=== PATIENT | female | born 1940 | race Caucasian/White ===

== ENCOUNTER 2018-06-10 13:19 | Observation (INO) | payer MEDICARE, OTHER, SELFPAY ==
[2018-06-10] VITALS (8 sets, daily range): BP systolic 144–169; BP diastolic 73–91; PULSE 72–94; RESP 16–18; TEMP 36.6–36.9; O2SAT 97–100
--- NOTE | 2018-06-10 13:57 | PC.NURSE ---
Pt arrived via [facility] c/o generalized weakness and FTT. Increasingly weak, used to be able to ambulate around house and now unable to stand, pt has dementia and pleasantly confused and alert to person. Denies pain when asked. transported here for possible UTI r/o sepsis. Temp 98.7 in ambulance and rapid lactate of 2.8.
[2018-06-10] MEDS: SODIUM CHLORIDE 0.9% 1,000 ML 200 ML IV (14:00)
[2018-06-10 15:06] LABS: Add Manual Diff / Slide Review NO; Basophils Percent Auto 1.3 % (0-2); Eosinophils Percent Auto 1.2 % (2-4); Hematocrit 35.4 % (36-46); Hemoglobin 11.9 g/dL (12.0-16.0); Lymphocytes Percent Auto 16.6 % (25-40); Mean Corpuscular HGB Conc 33.7 % (30-36); Mean Corpuscular Hemoglobin 29.7 PG (26-34); Mean Corpuscular Volume 88.2 fL (80-100); Monocytes Percent Auto 5.8 % (3-14); Neutrophils Absolute Auto 5500 /uL (3000-5900); Neutrophils Percent Auto 75.1 % (50-75); Platelet Count 292 X10^3/uL (150-400); Red Blood Cell Count 4.01 X10^6/uL (4.0-5.2); White Blood Cell Count 7.4 X10^3/uL (4.5-11.0)
[2018-06-10 15:10] LABS: Lactate (Lactic Acid) 0.8 mmol/L (0.7-2.1)
[2018-06-10 15:11] LABS: Alanine Aminotransferase 23 IU/L (9-52); Albumin 3.7 g/dL (3.5-5.0); Albumin Globulin Ratio 1.3 (1.0-2.8); Alkaline Phosphatase 74 U/L (38-126); Aspartate Aminotransferase 21 IU/L (14-36); BUN Creatinine Ratio 22.9 (6-22); Bilirubin Total 0.4 mg/dL (0.2-1.3); Blood Urea Nitrogen 16 mg/dL (7-17); Calcium 9.3 mg/dL (8.4-10.2); Carbon Dioxide 31 mmol/L (22-32); Chloride 102 mmol/L (98-107); Estimated Glomerular Filt Rate > 60.0 mL/min (>60); Globulin 2.8 g/dL (1.7-4.1); Glucose 101 mg/dL (80-110); HEMOLYSIS < 15 (0-50); Sodium 137 mmol/L (137-145); Total Protein 6.5 g/dL (6.3-8.2)
--- NOTE | 2018-06-10 15:19 | DI.CT.S_ITS ---
PROCEDURE: CT HEAD/BRAIN WO CON INDICATIONS: ams TECHNIQUE: Noncontrast 4.5 mm thick angled axial sections acquired from the foramen magnum to the vertex, with coronal and sagittal reformats. For radiation dose reduction, the following was used: automated exposure control, adjustment of mA and/or kV according to patient size. COMPARISON: None. FINDINGS: Image quality: Excellent. CSF spaces: Basal cisterns are patent. No extra-axial fluid collections. The ventricles are symmetric in size and shape. Brain: No intracranial bleeds or masses. There is cerebral volume loss for age, with resultant ventricular and sulcal prominence. There are periventricular and deep white matter chronic small vessel ischemic changes. There is intracranial internal carotid artery atherosclerosis. Skull and face: Calvarium and visualized facial bones appear intact, without suspicious lesions. Sinuses: Visualized sinuses and mastoids are clear. IMPRESSION: No acute intracranial abnormality. Dictated by: Pro Palencia M.D. on 06/10/2018 at 16:21 Approved by: Pro Palencia M.D. on 06/10/2018 at 16:21
[2018-06-10 16:27] LABS: Bacteria Urine None Seen; WBC Urine None Seen (0-5/HPF)
[2018-06-10 16:30] LABS: Appearance Urine UA CLEAR; Bilirubin Urine UA NEGATIVE (NEGATIVE); Color Urine UA YELLOW; Glucose Urine UA NEGATIVE (Normal); Ketones Urine UA 1+ (NEGATIVE); Leukocyte Esterase Urine UA NEGATIVE (NEGATIVE); Nitrite Urine UA Negative (Negative); Occult Blood Urine UA 1+ (Negative); Protein Urine UA NEGATIVE (Negative); Specific Gravity Urine UA 1.015 (1.000-1.035); Urobilinogen Urine UA 0.2 E.U./dL (0.2)
[2018-06-10 16:52] LABS: RBC Urine 1-5/HPF (0-5/HPF)
--- NOTE | 2018-06-10 17:17 | DI.RAD.S_ITS ---
PROCEDURE: XR CHEST 1V INDICATIONS: ams TECHNIQUE: One view of the chest was acquired. COMPARISON: None. FINDINGS: Surgical changes and devices: None. Lungs and pleura: No pleural effusions or pneumothorax. Lungs are clear. Mediastinum: Mediastinal contours appear normal. Heart size is normal. Bones and chest wall: No suspicious bony lesions. Overlying soft tissues appear unremarkable. IMPRESSION: No acute process. Dictated by: Pro Palencia M.D. on 06/10/2018 at 17:33 Approved by: Pro Palencia M.D. on 06/10/2018 at 17:33
[2018-06-10 17:43] LABS: Troponin I < 0.012 ng/mL (0.01-0.034)
[2018-06-10 17:45] LABS: Procalcitonin < 0.05 ng/mL (<0.5)
[2018-06-10 17:48] LABS: Free T4, Direct Thyroxine 1.41 ng/dL (0.78-2.19)
--- NOTE | 2018-06-10 17:50 | ED.WEAKNESS ---
HPI - Weakness General Chief complaint: Weakness Stated complaint: Weakness History of Present Illness HPI Narrative: HPI 78-year-old female with a history of hypothyroidism and 5 years of gradual cognitive decline, decreased mobility, and decreased energy as well as increasing confusion presents for evaluation of 10 days of increasing weakness without further localizing symptoms, decreasing energy, and decreasing p.o. intake. Patient has been without recent falls, remains compliant with her levothyroxine, and takes no further medications. Patient is not yet hundred evaluation for her 5 years of cognitive decline. History obtained from: and PCP. M/S/F/SocHx notable for: Alzheimer's dementia; remainder reviewed with patient and in chart. ROS: Negative constitutional, eye, cardiovascular, pulmonary, GI, , MSK, skin, neurologic, psychiatric, endocrine unless noted in the HPI. Exam HR 94, BP 167/91, RR 18, T 98.2 ?F, SaO2 100 % on room air; at 1:24 PM. Gen: Pleasant, non-toxic appearing, resting comfortably. HEENT: Normocephalic, atraumatic Resp: Clear to auscultation bilaterally, normal work of breathing with no accessory muscle usage. Card: Regular rate and rhythm with no murmurs rubs or gallops. No JVD. No pedal edema bilaterally. GI: Nontender to palpation throughout all quadrants. Nondistended. : No CVA tenderness to percussion bilaterally. No suprapubic tenderness or palpable masses. MSK: No visible deformities, strength and tone within normal limits. Skin: Normal color with no visible lesions. Neuro: Gen AO x 3, no facial asymmetry, no gaze preference, no slurring of speech. CN II-III: pupils equal and reactive (->2mm bilaterally); III, IV, : EOMI, V1-V3: sensation to touch bilaterally intact; VII: no facial asymmetry (frown / smile); VIII: no nystagmus; X: phonation intact, uvula midline; XI: trapezius 5/5 bilaterally, XII: tongue midline. Cerebellar: no pronator drift, [id number] testing without dysmetria. 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 Gait: unable to assess. Psych: Mood and affect appropriate. Labs / Imaging (pertinent): WBC 7.4, Hb 11.9, Na 137, K 4.0, total bilirubin 0.4, AST 21, ALT 23, ALP 74, lactic acid 0.8. Troponin < 0.012, TSH 2.83, free T4 1.41, procalcitonin <0.05. UA - no bacteria, no WBCs, 1-5 RBCs, negative leukocyte esterase, negative nitrate. CT head: no acute intracranial abnormality. CXR: no acute cardiopulmonary disease process. EKG: SR at 97 BPM, IA 207 msec, no new ST segment changes, new LBBB, or T-wave changes that would suggest acute ischemia. MDM Previous chart, nursing note, and vitals reviewed. A: 78-year-old female with a history of Alzheimer's dementia and hypothyroidism and 5 years of gradual cognitive decline, decreased mobility, and decreased energy as well as increasing confusion presents for evaluation of 10 days of increasing weakness without further localizing symptoms, decreasing energy, and decreasing p.o. intake. DDx: CVA, ACS/UA, UTI, pneumonia, electrolyte abnormalities,anemia, hypothyroidism, hypothermia. Evaluation: * CVA: Examination without evidence of focal neuro deficit and history without evidence of resolved focal neuro deficit making stroke or TIA unlikely. CT head without evidence of abnormalities. * ACS/UA: Doubt ACS given a nonischemic EKG and negative troponin, history without clear evidence of symptoms consistent with unstable angina. * UTI: Urinalysis without evidence of infection. * Pneumonia: Doubt pneumonia given lack productive cough, fever, focal infiltrate on chest x-ray, or leukocytosis. * Heme/Lytes/Thyroid: CBC, BMP clinically within normal limits. TSH pending * Hypothermia: temperature within normal limits. * Polymyalgia rheumatica: ESR WNL, poor fit with overall symptoms, further evaluation deferred to PCP. ED Course: no acute clinically significant changes. Discussed patient's case with the patient's primary care physician, patient's had significant worsening, unable to ambulate, unable to perform ADLs, believes patient will need PT/OT and possible SNF placement. Pt's spouse amenable to admission and it planning on setting up home health assistance. Patient admitted for observation. Impression: Weakness. (please reference below for remainder of encounter information) Related Data Allergies Allergy/AdvReac Type Severity Reaction Status Date / Time No Known Drug Allergies Allergy Verified 06/10/18 13:24 Exam Initial Vital Signs Initial Vital Signs: Vital Signs Temperature 98.2 F 06/10/18 13:24 Pulse Rate 94 H 06/10/18 13:24 Respiratory Rate 18 06/10/18 13:24 Blood Pressure 167/91 H 06/10/18 13:24 Pulse Oximetry 100 06/10/18 13:24 Course Orders Ordered: ED Orders 06/10/18 14:10 Complete Blood Count AUTO DIFF Stat Comprehensive Metabolic Panel Stat Free T4 Free Thyroxine Stat Lactate (Lactic Acid) Stat Procalcitonin Stat Thyroid Stimulating Hormone Stat Troponin I Stat 06/10/18 15:10 Blood Culture Stat 06/10/18 15:19 CT head/brain wo con Stat EKG-12 Lead Stat 06/10/18 15:55 Urinalysis and Microscopic Stat 06/10/18 17:17 XR chest 1V Stat Sodium Chloride (Normal Saline 0.9%) 1,000 mls @ 200 mls/hr IV CONT ONE Stop: 06/10/18 18:59 Last Infusion: 06/10/18 17:04 Dose: 0 mls/hr Infusion: 06/10/18 16:30 Dose: 200 mls/hr Infusion: 06/10/18 15:45 Dose: 0 mls/hr Admin: 06/10/18 14:00 Dose: 200 mls/hr Vital Signs - 8 hr 06/10/18 13:24 06/10/18 14:36 06/10/18 16:33 Temperature 98.2 F 98 F Pulse Rate 94 H 86 72 Respiratory Rate 18 16 18 Blood Pressure 167/91 H Blood Pressure [Right Arm] 157/89 H 168/83 H Pulse Oximetry 100 100 100 MDM - Weakness Lab Data Result diagrams: 06/10/18 14:10 06/10/18 14:10 Lab Results 06/10/18 06/10/18 06/10/18 Range/Units 14:10 14:10 14:10 WBC 7.4 (4.5-11.0) X10^3/uL RBC 4.01 (4.0-5.2) X10^6/uL Hgb 11.9 L (12.0-16.0) g/dL Hct 35.4 L (36-46) % MCV 88.2 (80-100) fL MCH 29.7 (26-34) PG MCHC 33.7 (30-36) % RDW 13.0 (11.6-14.8) % Plt Count 292 (150-400) X10^3/uL Neut % (Auto) 75.1 H (50-75) % Lymph % (Auto) 16.6 L (25-40) % [place] % (Auto) 5.8 (3-14) % Eos % (Auto) 1.2 L (2-4) % Baso % (Auto) 1.3 (0-2) % Neut # (Auto) 5500 (0192-5075) /uL Sodium 137 (137-145) mmol/L Potassium 4.0 (3.4-5.1) mmol/L Chloride 102 (98-107) mmol/L Carbon Dioxide 31 (22-32) mmol/L BUN 16 (7-17) mg/dL Creatinine 0.70 (0.52-1.04) mg/dL Estimated GFR > 60.0 (>60) mL/min BUN/Creatinine Ratio 22.9 H (6-22) Glucose 101 (80-110) mg/dL Lactate 0.8 (0.7-2.1) mmol/L Calcium 9.3 (8.4-10.2) mg/dL Total Bilirubin 0.4 (0.2-1.3) mg/dL AST 21 (14-36) IU/L ALT 23 (9-52) IU/L Alkaline Phosphatase 74 (38-126) U/L Troponin I (0.01-0.034) ng/mL Total Protein 6.5 (6.3-8.2) g/dL Albumin 3.7 (3.5-5.0) g/dL Globulin 2.8 (1.7-4.1) g/dL Albumin/Globulin Ratio 1.3 (1.0-2.8) Procalcitonin (<0.5) ng/mL Free T4 (0.78-2.19) ng/dL Urine Color Urine Appearance Urine pH (4.5-8.0) Ur Specific [place] (1.000-1.035) Urine Protein (Negative) Urine Glucose (UA) (Normal) g/dL Urine Ketones (NEGATIVE) Urine Occult Blood (Negative) Urine Nitrate (Negative) Urine Bilirubin (NEGATIVE) Urine Urobilinogen (0.2) E.U./dL Ur Leukocyte Esterase (NEGATIVE) Urine RBC (0-5/HPF) Urine WBC (0-5/HPF) Urine Bacteria (None) Ur Culture Indicated? Micro UA Comment 06/10/18 06/10/18 06/10/18 Range/Units 14:10 14:10 14:10 WBC (4.5-11.0) X10^3/uL RBC (4.0-5.2) X10^6/uL Hgb (12.0-16.0) g/dL Hct (36-46) % MCV (80-100) fL MCH (26-34) PG MCHC (30-36) % RDW (11.6-14.8) % Plt Count (150-400) X10^3/uL Neut % (Auto) (50-75) % Lymph % (Auto) (25-40) % [place] % (Auto) (3-14) % Eos % (Auto) (2-4) % Baso % (Auto) (0-2) % Neut # (Auto) (6407-7109) /uL Sodium (137-145) mmol/L Potassium (3.4-5.1) mmol/L Chloride (98-107) mmol/L Carbon Dioxide (22-32) mmol/L BUN (7-17) mg/dL Creatinine (0.52-1.04) mg/dL Estimated GFR (>60) mL/min BUN/Creatinine Ratio (6-22) Glucose (80-110) mg/dL Lactate (0.7-2.1) mmol/L Calcium (8.4-10.2) mg/dL Total Bilirubin (0.2-1.3) mg/dL AST (14-36) IU/L ALT (9-52) IU/L Alkaline Phosphatase (38-126) U/L Troponin I < 0.012 (0.01-0.034) ng/mL Total Protein (6.3-8.2) g/dL Albumin (3.5-5.0) g/dL Globulin (1.7-4.1) g/dL Albumin/Globulin Ratio (1.0-2.8) Procalcitonin < 0.05 (<0.5) ng/mL Free T4 1.41 (0.78-2.19) ng/dL Urine Color Urine Appearance Urine pH (4.5-8.0) Ur Specific [place] (1.000-1.035) Urine Protein (Negative) Urine Glucose (UA) (Normal) g/dL Urine Ketones (NEGATIVE) Urine Occult Blood (Negative) Urine Nitrate (Negative) Urine Bilirubin (NEGATIVE) Urine Urobilinogen (0.2) E.U./dL Ur Leukocyte Esterase (NEGATIVE) Urine RBC (0-5/HPF) Urine WBC (0-5/HPF) Urine Bacteria (None) Ur Culture Indicated? Micro UA Comment 06/10/18 Range/Units 15:55 WBC (4.5-11.0) X10^3/uL RBC (4.0-5.2) X10^6/uL Hgb (12.0-16.0) g/dL Hct (36-46) % MCV (80-100) fL MCH (26-34) PG MCHC (30-36) % RDW (11.6-14.8) % Plt Count (150-400) X10^3/uL Neut % (Auto) (50-75) % Lymph % (Auto) (25-40) % [place] % (Auto) (3-14) % Eos % (Auto) (2-4) % Baso % (Auto) (0-2) % Neut # (Auto) (9449-6556) /uL Sodium (137-145) mmol/L Potassium (3.4-5.1) mmol/L Chloride (98-107) mmol/L Carbon Dioxide (22-32) mmol/L BUN (7-17) mg/dL Creatinine (0.52-1.04) mg/dL Estimated GFR (>60) mL/min BUN/Creatinine Ratio (6-22) Glucose (80-110) mg/dL Lactate (0.7-2.1) mmol/L Calcium (8.4-10.2) mg/dL Total Bilirubin (0.2-1.3) mg/dL AST (14-36) IU/L ALT (9-52) IU/L Alkaline Phosphatase (38-126) U/L Troponin I (0.01-0.034) ng/mL Total Protein (6.3-8.2) g/dL Albumin (3.5-5.0) g/dL Globulin (1.7-4.1) g/dL Albumin/Globulin Ratio (1.0-2.8) Procalcitonin (<0.5) ng/mL Free T4 (0.78-2.19) ng/dL Urine Color Yellow Urine Appearance Clear Urine pH 7.0 (4.5-8.0) Ur Specific [place] 1.015 (1.000-1.035) Urine Protein Negative (Negative) Urine Glucose (UA) Negative (Normal) g/dL Urine Ketones 1+ H (NEGATIVE) Urine Occult Blood 1+ H (Negative) Urine Nitrate Negative (Negative) Urine Bilirubin Negative (NEGATIVE) Urine Urobilinogen 0.2 (0.2) E.U./dL Ur Leukocyte Esterase Negative (NEGATIVE) Urine RBC 1-5/hpf (0-5/HPF) Urine WBC None seen (0-5/HPF) Urine Bacteria None seen (None) Ur Culture Indicated? Not Reportable Micro UA Comment Not Reportable
[2018-06-10 18:02] LABS: Thyroid Stimulating Hormone 2.83 uIU/mL (0.47-4.68)
--- NOTE | 2018-06-10 19:17 | P.HP_ITS ---
History of Present Illness Date Patient Seen: 06/10/18 Time Patient Seen: 18:30 Chief complaint: Weakness Narrative: This is an 78-year-old female with advanced Alzheimer's dementia presenting with progressive debilitation and failure to thrive, with inability for independent ambulation and activities of daily living. Operative physician account that was significant cognitive decline in the last 5 years accompanied by decreased mobility, energy, confusion and weakness resulting localizing symptoms. She was brought to ED by patient's for a conditional primary care physician for inability to continue ongoing cares she required requesting assistance with placement to alf facility. Initial exam and testing in ED was significant for elderly female who was pleasantly confused. Her vital signs were stable, hold given clinical exam was unremarkable. Otherwise no abnormal findings on the floor clinical labs and initial imaging studies conducted. Patient is getting admitted for observation by hospitalist team. PTOT to evaluate and treat, social work consult to assist with placement to skilled nurse facility Patient History Comment: Direct information regarding past surgical problems is unobtainable due to advanced dementia. Family & Social History Family History: Reviewed 06/10/18 by Herb Mosqueda MD Family history unavailable: Yes Social History: Family and social history is unobtainable due to advanced patient's dementia Safety & Behavioral: Apparently, patient's is unable to provide ongoing care for his due to her progressing dementia. Tobacco & Substance use: No reports of prior smoking, alcohol abuse or illicit drug use. Meds Home Medications Medication Instructions Recorded Confirmed Type levothyroxine 112 mcg PO DAILY 06/10/18 06/10/18 History Allergies Allergy/AdvReac Type Severity Reaction Status Date / Time No Known Drug Allergies Allergy Verified 06/10/18 13:24 Review of Systems Review of Systems unobtainable due to mental condition Exam Vital Signs (past 8 hours): - 06/10/18 13:24 06/10/18 14:36 06/10/18 16:33 Temperature 98.2 F 98 F Pulse Rate 94 H 86 72 Respiratory Rate 18 16 18 Blood Pressure 167/91 H Blood Pressure [Right Arm] 157/89 H 168/83 H Pulse Oximetry 100 100 100 06/10/18 18:00 06/10/18 18:35 Temperature 98.4 F Pulse Rate 84 89 Respiratory Rate 16 Blood Pressure 144/73 H Blood Pressure [Right Arm] 154/78 H Pulse Oximetry 97 100 Oxygen Delivery Method Room Air Narrative Exam Narrative: Constitutional: Pleasant, chronically confused, resting comfortably. HEENT: Normocephalic, atraumatic Neck: Supple, no lymphadenopathy, no bruits auscultation of the carotid arteries. Resp: Clear to auscultation bilaterally, no rales, crepitations or wheezing detected. Cardiovascular: Regular rate and rhythm with no murmurs rubs or gallops. GI: Nontender to palpation throughout all quadrants. Nondistended. : No CVA tenderness to percussion bilaterally. No suprapubic tenderness or palpable masses. MSK: No visible deformities, strength and tone within normal limits. Skin: Normal color with no visible lesions. Neuro: Patient appears to be grossly neurologically intact Objective Imaging Chest x-ray: Radiologist's impression: IMPRESSION: No acute process. Dictated by: Pro Palencia M.D. on 06/10/2018 at 17:33 Approved by: Pro Palencia M.D. on 06/10/2018 at 17:33 CT scan - head: Radiologist's impression: IMPRESSION: No acute intracranial abnormality. Dictated by: Pro Palencia M.D. on 06/10/2018 at 16:21 Approved by: Pro Palencia M.D. on 06/10/2018 at 16:21 Labs Result Diagrams: 06/10/18 14:10 06/10/18 14:10 Labs: Laboratory Results - last 24 hr 06/10/18 06/10/18 06/10/18 14:10 14:10 14:10 WBC 7.4 RBC 4.01 Hgb 11.9 L Hct 35.4 L MCV 88.2 MCH 29.7 MCHC 33.7 RDW 13.0 Plt Count 292 Neut % (Auto) 75.1 H Lymph % (Auto) 16.6 L [place] % (Auto) 5.8 Eos % (Auto) 1.2 L Baso % (Auto) 1.3 Neut # (Auto) 5500 Sodium 137 Potassium 4.0 Chloride 102 Carbon Dioxide 31 BUN 16 Creatinine 0.70 Estimated GFR > 60.0 BUN/Creatinine Ratio 22.9 H Glucose 101 Lactate 0.8 Calcium 9.3 Total Bilirubin 0.4 AST 21 ALT 23 Alkaline Phosphatase 74 Troponin I Total Protein 6.5 Albumin 3.7 Globulin 2.8 Albumin/Globulin Ratio 1.3 Procalcitonin TSH Free T4 Urine Color Urine Appearance Urine pH Ur Specific [place] Urine Protein Urine Glucose (UA) Urine Ketones Urine Occult Blood Urine Nitrate Urine Bilirubin Urine Urobilinogen Ur Leukocyte Esterase Urine RBC Urine WBC Urine Bacteria Ur Culture Indicated? Micro UA Comment 06/10/18 06/10/18 06/10/18 14:10 14:10 14:10 WBC RBC Hgb Hct MCV MCH MCHC RDW Plt Count Neut % (Auto) Lymph % (Auto) [place] % (Auto) Eos % (Auto) Baso % (Auto) Neut # (Auto) Sodium Potassium Chloride Carbon Dioxide BUN Creatinine Estimated GFR BUN/Creatinine Ratio Glucose Lactate Calcium Total Bilirubin AST ALT Alkaline Phosphatase Troponin I < 0.012 Total Protein Albumin Globulin Albumin/Globulin Ratio Procalcitonin < 0.05 TSH 2.83 Free T4 1.41 Urine Color Urine Appearance Urine pH Ur Specific [place] Urine Protein Urine Glucose (UA) Urine Ketones Urine Occult Blood Urine Nitrate Urine Bilirubin Urine Urobilinogen Ur Leukocyte Esterase Urine RBC Urine WBC Urine Bacteria Ur Culture Indicated? Micro UA Comment 06/10/18 15:55 WBC RBC Hgb Hct MCV MCH MCHC RDW Plt Count Neut % (Auto) Lymph % (Auto) [place] % (Auto) Eos % (Auto) Baso % (Auto) Neut # (Auto) Sodium Potassium Chloride Carbon Dioxide BUN Creatinine Estimated GFR BUN/Creatinine Ratio Glucose Lactate Calcium Total Bilirubin AST ALT Alkaline Phosphatase Troponin I Total Protein Albumin Globulin Albumin/Globulin Ratio Procalcitonin TSH Free T4 Urine Color Yellow Urine Appearance Clear Urine pH 7.0 Ur Specific [place] 1.015 Urine Protein Negative Urine Glucose (UA) Negative Urine Ketones 1+ H Urine Occult Blood 1+ H Urine Nitrate Negative Urine Bilirubin Negative Urine Urobilinogen 0.2 Ur Leukocyte Esterase Negative Urine RBC 1-5/hpf Urine WBC None seen Urine Bacteria None seen Ur Culture Indicated? Not Reportable Micro UA Comment Not Reportable Assessment & Plan Plan: Assessment/Plan Narrative: 1. Dementia, Alzheimer's type, advanced colon: Patient was brought to the ED by patient's who recommended primary care physician with request to assist with placement to skilled nurse facility . Patient with longstanding history of dementia without behavioral changes. There was significant cognitive and functional decline in the last 5 years. At this time patient essentially lost ability for independent ambulation and basic activities of daily living though was no falls reported. Social work consult to arrange sniff placement was requested and currently pending. 2. Hypothyroidism: Continue chronic replacement with Levoxyl 3. Deconditioning/debility: PTOT to evaluate and treat. 4. GI prophylaxis: Heart healthy diet. 5. DVT prophylaxis: Lovenox SC 6. Code status:Full code. Time Spent With Patient Time with patient: 25 - 35 minutes
--- NOTE | 2018-06-10 19:26 | PC.NURSE ---
Pt to acute care from ER. Transferred via stretcher/slider board to bed. Alert, Oriented to self. Denies pain. Unable to answer most admission questions/placed on High fall risk due to this. Bed alarm on. Attempted to orient to room/call light. Pt is visible from nurses station.
[2018-06-11] VITALS (10 sets, daily range): BP systolic 147–178; BP diastolic 75–101; PULSE 60–96; RESP 16; TEMP 36.6–37.2; O2SAT 93–98
--- NOTE | 2018-06-11 07:52 | PC.NURSE ---
Addendum entered by Catia Michael R.N. 06/11/18 15:53: Alert, oriented to self and . Flat affect, answers questions largely with 1-word answers. Was up to chair for a little while, then back to bed. 2-person Max assist for stand-pivot transfers. Seems like she will require supervision, assistance and cueing with meal when isn't here to help feed her. Resting back in bed at this time. Call light in reach, bed alarm on. sitting at bedside. Original Note: Shift summary: Resting quietly in bed with eyes closed. No s/sx distress or discomfort. Respirations regular and unlabored. Will let sleep and complete assessment when awake. Call light in reach, fall precautions in place. Bedrest until PT/OT eval.
--- NOTE | 2018-06-11 11:17 | CM.DANOTE ---
DCP: Case received, EMR reviewed and met with patient. Introduced self and role. DCP template completed with information currently available. Patient is an 78 year old female who admitted yesterday evening to the care of the hospitalist team. PCP: Dr. Tse. Payer: confirmed: Medicare/[employer]. Confirmed this with spouse. Patient carries a diagnosis of dementia. Came to hospital with symptoms of increased weakness. is the primary caregiver, and stated that as her dementia progresses, she has become weaker. He stated that he has noted increased weakness more-so in the last 10 days. stated that she is not an elopement risk anymore as her disease has advanced, but it is getting harder for him to transfer her. Gave Medicare choice list, and [facility] to look at Assisted Living Facilities. Is aware that he would have to pay privately. Called and spoke to Olivia, and stated that admissions would be there tomorrow. also called, and may look at facility tomorrow. Also called [facility], spoke to Aiyana, she is head of [facility], and gave rates of about 140.00 a day. may call her. He is also looking into home caregivers as well. P: Patient remains under observation status. may take her home and get home caregivers, he will weigh out the cost on this. Is aware that is private pay. Has no other family in immediate area, they live on [address]. DCP to continue to plan and support. Muna Wheeler, RN/Reeling Operator
--- NOTE | 2018-06-11 11:30 | OT.IP.EVAL ---
Past Medical History (Last Updated 06/10/18 @ 19:25 by Michelle Mcclelland RN) Hypothyroid (Acute) Occupational Therapy Inpatient Evaluation/Re-Eval M1 PT/OT-IP Prior Functional Status Start: 06/11/18 13:22 Freq: NEEDED Status: Active Protocol: Document 06/11/18 13:22 PJM (Rec: 06/11/18 13:47 PJM [email or web address]) Medical Review Prior Functional Status Medical History Reviewed Yes Communication WFL, hesitant speech Mobility and Gait Pt was ambulating holding 's arm until 10 days ago, then began to require 2 handhold assist with leading her. She has been unable to ambulate last 1-2 days prior to admit. reports pt had 1 fall at home about 10 days ago when getting up to bathroom during the night. He had to call EMT for assist in getting her up. Activities of Daily Living and IADL's has been assisting pt with grooming, dressing, bathing, and toileting. She recently became incontinent of bowel and bladder. does all IADLs . They live on [facility]. Social History Household Members spouse Living Arrangements House Number of Floors (Floors) Two Floors Number of Stairs To Enter/Railing? 1 stair to enter main level of home. Pt does not use lower level. Home Environment Standard Height Toilet Walk in Shower Home Equipment Front Wheel Walker Straight Cane Grab Bars Near Toilet Employment Status Retired Additional Social History Comment Pt has been standing to shower with assist from . Pt has toilet safety frame. M2 OT-IP Current Condition Start: 06/11/18 13:22 Freq: Status: Active Protocol: Document 06/11/18 13:22 PJM (Rec: 06/11/18 13:47 PJM [email or web address]) Occupational Therapy Current Condition Current Condition Evaluation Date 06/11/18 Treatment Diagnosis decreased functional cognition , self care, mobility due to dementia Diagnosis Onset Date 06/10/18 Post Operative Precautions Other Precautions confusion, fall risk, bed/ chair alarm M3 OT- IP Subjective and Pain Start: 06/11/18 13:22 Freq: Status: Active Protocol: Document 06/11/18 13:22 PJM (Rec: 06/11/18 13:47 PJM [email or web address]) OT- Subjective Occupational Therapy Visit Type Type Initial Evaluation Visit Start Time 10:45 Visit Stop Time 11:30 Total Visit Minutes 45 Notes here to provide information re: pt's prior level of function. Occupational Therapy Visit Comments Patient Comments pt does not initiate conversation Patient/Caregiver Goals none verbalized this session due to confusion OT Pain Assessment Pain When Pain Assessed After Treatment Pain Present Pain Present Denied Pain M4 OT- IP ADL's Start: 06/11/18 13:22 Freq: Status: Active Protocol: Document 06/11/18 13:22 PJM (Rec: 06/11/18 13:47 PJ [email or web address]) OT AED-Cipw-Kqtohza General Evaluation Self-Feeding Ability Standby Assistance Comments OT Self-Feeding Comments Needs meal tray set up and supervision due to confusion OT ADL-Grooming General Evaluation Grooming Ability Moderate Assistance Areas Needing Assistance Retrieving/Set-up of Grooming Items Combing/Brushing Hair Face Washing Comments OT Grooming Comments seated in chair OT ADL-Oral Care General Eval Oral Care Ability Minimal Assistance Areas of Assistance Retrieving/Set-Up of Items Devices Oral Care Devices Toothbrush Comments Oral Care Comments seated in chair OT ADL-Dressing General Eval Upper Body Dressing Ability Moderate Assistance Lower Body Dressing Ability Maximum Assistance Comments OT Dressing Comments states pt could tie shoes at home. He assisted with upper/lower body dressing prior to admit. OT ADL-Toileting General Evaluation Toileting Ability Total Assistance Comments OT Toileting Comments Pt has been incontinent of bowel and bladder recently per ; wears Attends. OT ADL-Bathing Bathing Type Bathing Type Sponge Bath General Evaluation Bathing Ability Maximal Assistance M5 OT- IP IADL's Start: 06/11/18 13:22 Freq: Status: Active Protocol: Document 06/11/18 13:22 PJM (Rec: 06/11/18 13:47 PJ [email or web address]) OT-Instrumental Activities of Daily Living Deficits IADL Deficits Identified Deficits Home Safety Awareness Awareness of Need for Assistance at Home Decreased Awareness Ability to Problem Solve Emergency Unable to Problem Solve Situations Medication Management Medication Management Caregiver Administers Money Management Money Management Caregiver Provides Assistance Meal Preparation Meal Preparation Caregiver Provides Assist Beef Trimmer Beef Trimmer Caregiver Provides Assist Driving Driving Comments pt no longer drives M6 OT- IP Functional Cognition Start: 06/11/18 13:22 Freq: Status: Active Protocol: Document 06/11/18 13:22 PJM (Rec: 06/11/18 13:47 [facility] [id number]) Cognitive Factors Limiting Selfcare Function Cognitive Ability Level of Alertness Alert Patient Orientation Name Attention Span Ability Capable of Focused Attention Ability to Follow Commands Able to Follow One Step Commands Memory Description Immediate Impaired Short Term Impaired Problem Solving Ability Unable to Identify Errors Cognitive Comments Cognitive Assessment Comments Pt has significantly slowed speed of processing. She is oriented to self only. She recognizes and names her . She does follow one step commands after processing delay. OT- Vision and Hearing OT- Hearing Assessment OT- Hearing Assessment WFL OT- Vision Assessment Visual Acuity WFL Vision Assessment Comments Pt reads her journals per . M7 OT- IP Mobility and Balance Start: 06/11/18 13:22 Freq: Status: Active Protocol: Document 06/11/18 13:22 PJ (Rec: 06/11/18 13:47 [facility] [id number]) OT- Bed Mobility Assessment Rolling Type of Rolling Roll to Left Level of Assistance Maximum Assistance Supine to Sit Supine to Sit Assist Maximum Assistance 1 Person Assistance Head of Bed Elevated Scooting Scooting to Edge of Bed Maximum Assistance 1 Person Assistance Bedrails OT-Transfer Assessment Sit to and From Stand Sit to and from Stand Maximum Assistance 2 Person Assistance Transfers Transfer Ability Maximum Assistance 2 Person Assistance Technique Transfer Destination Chair Transfer Technique Stand Pivot Devices Transfer Assistive Devices Gait Belt Comments Mobility Comments Max assist of 1 person with second person assist for safety. Pt leans backwards and has difficulty with weight shifting for stepping. She appears fearful of falling and apraxic with motor commands. OT- Gait Assessment Comments Gait Ability Comments pt non ambulatory at present OT- Balance Assessment Sitting Balance and Reactions Static Sitting Balance Ability Fair Dynamic Sitting Balance Ability Poor Standing Balance and Reactions Static Standing Balance Ability Poor Dynamic Standing Balance Ability Poor M8 OT- IP Objective Assessments Start: 06/11/18 13:22 Freq: Status: Active Protocol: Document 06/11/18 13:22 PJ (Rec: 06/11/18 13:47 [facility] [id number]) OT Gross Range of Motion Upper Extremity Range of Motion Assessment Right Impaired ROM Impairments Pt has RUE lag compared to L during BUE AROM. Per , pt had R wrist fx's in 2011 and 2012. OT Strength Upper Extremity Strength Assessment Right Impaired Shoulder RUE: 3+/5 LUE: 4-/5 Elbow RUE: 3+/5 LUE: 4-/5 Hand RUE: 4-/5 LUE: 4/5 Hand Supervisor [employer] Strength Hand Dominance Right Comments Strength Comments RUE slightly weaker than LUE throughout OT- Coordination Assessment Comments Coordination Comments B hand coordination impaired by confusion and decreased moot planning OT-Muscle Tone Assessment Muscle Tone WNL Yes OT Sensation Assessment Comments Summary Comments Pt appears to detect light touch in BUE; difficult to formally assess due to confusion Edema Edema Absent Edema Comments in BUE's M9 OT- IP Assessment and Plan Start: 06/11/18 13:22 Freq: Status: Active Protocol: Document 06/11/18 13:22 PJM (Rec: 06/11/18 13:47 PJM [email or web address]) OT Summary Assessment and Plan Potential Rehabilitation Potential Fair Analytic Complexity at Evaluation Low Summary OT Impairments Strength Functional Cognition Functional Mobility Grooming Dressing Toileting Bathing Toilet Transfers Shower Transfers Assessment Summary Low complexity OT assessment completed. Pt has significant performance deficits in functional cognition with recent significant decrease in all functional mobility, continence and self care, especially in last 10 days. Her elderly is no longer able to care for her at home. Per case briefer, d/c plan is home with paid caregiver vs Adult Family Home . is considering options at present. Pt may benefit from home health OT services at d/c to maximize independence in new setting and/or provide caregiver training. Goals Self-Feeding Goal Standby Assistance Grooming Goal Standby Assistance Dressing Goal Minimal Assistance Bathing Goal Moderate Assistance Toilet Transfer Goal Moderate Assistance Bedside Commode OT-Other Goals Bathing goal is for seated upper body sponge bath. Days to Meet Goals 5 Frequency of Treatment Frequency Of Treatment Once a Day Treatment Plan OT Treatment Plan ADL Training Functional Mobility Patient/Family Education Discharge Planning Discharge Recommendations OT Discharge Recommendations Home with 16/05 Assist Home Health Other Discharge Recommendations vs Adult Family home Home Equipment Needs bedside commode, shower seat with back, hand held shower hose
--- NOTE | 2018-06-11 11:30 | PT.IIE ---
Medical History (Last Updated 06/10/18 @ 19:25 by Michelle Mcclelland RN) Hypothyroid (Acute) Physical Therapy Inpatient Evaluation/Re-Eval M1 PT/OT-IP Prior Functional Status Start: 06/11/18 13:22 Freq: NEEDED Status: Active Protocol: Document 06/11/18 13:22 PJM (Rec: 06/11/18 13:47 PJM [email or web address]) Medical Review Prior Functional Status Medical History Reviewed Yes Communication WFL, hesitant speech Mobility and Gait Pt was ambulating holding 's arm until 10 days ago, then began to require 2 handhold assist with leading her. She has been unable to ambulate last 1-2 days prior to admit. reports pt had 1 fall at home about 10 days ago when getting up to bathroom during the night. He had to call EMT for assist in getting her up. Activities of Daily Living and IADL's has been assisting pt with grooming, dressing, bathing, and toileting. She recently became incontinent of bowel and bladder. does all IADLs . They live on [facility]. Social History Household Members spouse Living Arrangements House Number of Floors (Floors) Two Floors Number of Stairs To Enter/Railing? 1 stair to enter main level of home. Pt does not use lower level. Home Environment Standard Height Toilet Walk in Shower Home Equipment Front Wheel Walker Straight Cane Grab Bars Near Toilet Employment Status Retired Additional Social History Comment Pt has been standing to shower with assist from . Pt has toilet safety frame. M2 PT-IP Current Condition Start: 06/11/18 14:55 Freq: Status: Active Protocol: Document 06/11/18 11:30 [facility] (Rec: 06/11/18 15:10 [facility] [id number]) Physical Therapy Current Condition Current Condition Evaluation Date 06/11/18 Treatment Diagnosis weakness, impaired mobility Onset Date 06/10/18 Precautions Other Precautions confusion, fall risk, bed/ chair alarm M3 PT-IP Subjective Start: 06/11/18 14:55 Freq: Status: Active Protocol: Document 06/11/18 11:30 [facility] (Rec: 06/11/18 15:10 [facility] [id number]) Subjective Physical Therapy Visit Type Type Initial Evaluation Visit Start Time 11:00 Visit Stop Time 11:30 Total Visit Minutes 30 Number of HAT FINISHER Visits 0 Physical Therapy Visit Comments Patient Comments pt willing to participate in evaluation. M4 PT-IP Mobility and Gait Start: 06/11/18 14:55 Freq: Status: Active Protocol: Document 06/11/18 11:30 [facility] (Rec: 06/11/18 15:10 [facility] [id number]) PT-Bed Mobility Assessment Supine to Sit Supine to Sit Maximum Assistance 1 Person Assistance Head of Bed Elevated Scooting Scooting to Edge of Bed Maximum Assistance PT-Transfer Assessment Sit to and From Stand Sit to and from Stand Maximum Assistance 2 Person Assistance Equipment Transfer Assistive Device Gait Belt Transfers Transfer Destination Chair Transfer Technique Stand Pivot Transfer Ability Level of Assist Maximum Assistance 2 Person Assistance Comments Mobility Comments PT in front of pt with pt's hands on PT's B forearms. Gait Assessment Comments Gait Comments unable to perform PT-Balance Assessment Sitting Balance and Reactions Static Sitting Balance Ability Fair Dynamic Sitting Balance Ability Poor Standing Balance and Reactions Static Standing Balance Ability Poor Dynamic Standing Balance Ability Poor M5 PT-IP Objective Assessments Start: 06/11/18 14:55 Freq: Status: Active Protocol: Document 06/11/18 11:30 [facility] (Rec: 06/11/18 15:10 [facility] [id number]) Orientation Orientation/Cognition Level of Alertness Confusional State Gross Range of Motion Lower Extremity ROM Impairments limited B knee flexion and extension Strength Lower Extremity Strength Assessment Bilaterally Impaired Hip flexion 2+/5 bilaterally Knee flexion 3+/5 B, extensoin 3/5 on the L and 3+/5 on R Ankle DF 2/5 on the R, 3/5 L Coordination Assessment Gross Coordination Gross Coordination Impaired Muscle Tone Muscle Tone WNL No Comments Muscle Tone Comments heel cord tighness R>L M6 PT-IP Treatment Start: 06/11/18 14:55 Freq: Status: Active Protocol: Document 06/11/18 11:30 [facility] (Rec: 06/11/18 15:10 [facility] [id number]) Physical Therapy Treatment Education Education Provided Safety M7 PT-IP Assessment and Plan Start: 06/11/18 14:55 Freq: Status: Active Protocol: Document 06/11/18 11:30 [facility] (Rec: 06/11/18 15:10 [facility] [id number]) PT Summary Assessment and Plan Potential Rehabilitation Potential Fair Status of Condition at Evaluation Evolving Summary Impairments ROM Strength Balance Coordination Cognition Bed Mobility Transfers Gait Activity Tolerance Assessment Summary Pt presents with progressive worsening of mobility, requiring max assist for all mobility, 2 assist for transfers. Pt's has been assisting, but the burden of care now is too high for the pt's spouse to be able to safely manage at home. Pt is unable to ambulate at the time of this session, and is at high risk for falls. Pt would likely benefit from 24/7 assistance given her amount of needs required for daily function. Pt may require long- term care if condition continues to decline. Goals Bed Mobility Goal Moderate Assistance Transfer Goal Moderate Assistance Gait Goal Moderate Assistance Gait Distance 10 Days to Meet Goals 3 Frequency of Treatment Frequency Of Treatment Once a Day Treatment Plan Physical Therapy Treatment Plan Bed Mobility Training Transfer Training Gait Training Therapeutic Exercise Balance Retraining Discharge Planning Neuromuscular Re-ed Coordination Retraining Other Recommendations and Next Treatment transfers, prog. toward Focus functional gait (recommend 2 assist) Recommendations To Nursing Amount of Assist Needed 2 Person Assist Discharge Recommendations PT Discharge Recommendations Home with 24/7 Assist Home Health SNF Rehab Other Discharge Recommendations SNF vs home with 24/7 and , possibly long-term care
--- NOTE | 2018-06-11 13:11 | PM.PN.1 ---
Subjective Date Patient Seen: 06/11/18 Time Patient Seen: 09:10 Interval history: This is an 78-year-old female with advanced Alzheimer's dementia presenting with progressive debilitation and failure to thrive, with inability for independent ambulation and activities of daily living. No events since admission, currently remains pleasantly confused and appears to be comfortable. Exam Vital Signs (past 8 hours): - 06/11/18 08:30 Temperature 98.4 F Pulse Rate 89 Respiratory Rate 16 Blood Pressure 152/95 H Pulse Oximetry 93 Oxygen Delivery Method Room Air Narrative Exam Narrative: Constitutional: Pleasant, chronically confused, resting comfortably. HEENT: Normocephalic, atraumatic Neck: Supple, no lymphadenopathy, no bruits auscultation of the carotid arteries. Resp: Clear to auscultation bilaterally, no rales, crepitations or wheezing detected. Cardiovascular: Regular rate and rhythm with no murmurs rubs or gallops. GI: Nontender to palpation throughout all quadrants. Nondistended. : No CVA tenderness to percussion bilaterally. No suprapubic tenderness or palpable masses. MSK: No visible deformities, strength and tone within normal limits. Skin: Normal color with no visible lesions. Neuro: Patient appears to be grossly neurologically intact Objective Imaging Chest x-ray: Radiologist's impression: Surgical changes and devices: None. Lungs and pleura: No pleural effusions or pneumothorax. Lungs are clear. Mediastinum: Mediastinal contours appear normal. Heart size is normal. Bones and chest wall: No suspicious bony lesions. Overlying soft tissues appear unremarkable. IMPRESSION: No acute process. Dictated by: Pro Palencia M.D. on 06/10/2018 at 17:33 Approved by: Pro Palencia M.D. on 06/10/2018 at 17:33 CT scan - head: Radiologist's impression: FINDINGS: Image quality: Excellent. CSF spaces: Basal cisterns are patent. No extra-axial fluid collections. The ventricles are symmetric in size and shape. Brain: No intracranial bleeds or masses. There is cerebral volume loss for age, with resultant ventricular and sulcal prominence. There are periventricular and deep white matter chronic small vessel ischemic changes. There is intracranial internal carotid artery atherosclerosis. Skull and face: Calvarium and visualized facial bones appear intact, without suspicious lesions. Sinuses: Visualized sinuses and mastoids are clear. IMPRESSION: No acute intracranial abnormality. Dictated by: Pro Palencia M.D. on 06/10/2018 at 16:21 Approved by: Pro Palencia M.D. on 06/10/2018 at 16:21 Labs Result Diagrams: 06/10/18 14:10 06/10/18 14:10 Labs: Laboratory Results - last 24 hr 06/10/18 06/10/18 06/10/18 14:10 14:10 14:10 WBC 7.4 RBC 4.01 Hgb 11.9 L Hct 35.4 L MCV 88.2 MCH 29.7 MCHC 33.7 RDW 13.0 Plt Count 292 Neut % (Auto) 75.1 H Lymph % (Auto) 16.6 L [place] % (Auto) 5.8 Eos % (Auto) 1.2 L Baso % (Auto) 1.3 Neut # (Auto) 5500 Sodium 137 Potassium 4.0 Chloride 102 Carbon Dioxide 31 BUN 16 Creatinine 0.70 Estimated GFR > 60.0 BUN/Creatinine Ratio 22.9 H Glucose 101 Lactate 0.8 Calcium 9.3 Total Bilirubin 0.4 AST 21 ALT 23 Alkaline Phosphatase 74 Troponin I Total Protein 6.5 Albumin 3.7 Globulin 2.8 Albumin/Globulin Ratio 1.3 Procalcitonin TSH Free T4 Urine Color Urine Appearance Urine pH Ur Specific [place] Urine Protein Urine Glucose (UA) Urine Ketones Urine Occult Blood Urine Nitrate Urine Bilirubin Urine Urobilinogen Ur Leukocyte Esterase Urine RBC Urine WBC Urine Bacteria Ur Culture Indicated? Micro UA Comment 06/10/18 06/10/18 06/10/18 14:10 14:10 14:10 WBC RBC Hgb Hct MCV MCH MCHC RDW Plt Count Neut % (Auto) Lymph % (Auto) [place] % (Auto) Eos % (Auto) Baso % (Auto) Neut # (Auto) Sodium Potassium Chloride Carbon Dioxide BUN Creatinine Estimated GFR BUN/Creatinine Ratio Glucose Lactate Calcium Total Bilirubin AST ALT Alkaline Phosphatase Troponin I < 0.012 Total Protein Albumin Globulin Albumin/Globulin Ratio Procalcitonin < 0.05 TSH 2.83 Free T4 1.41 Urine Color Urine Appearance Urine pH Ur Specific [place] Urine Protein Urine Glucose (UA) Urine Ketones Urine Occult Blood Urine Nitrate Urine Bilirubin Urine Urobilinogen Ur Leukocyte Esterase Urine RBC Urine WBC Urine Bacteria Ur Culture Indicated? Micro UA Comment 06/10/18 15:55 WBC RBC Hgb Hct MCV MCH MCHC RDW Plt Count Neut % (Auto) Lymph % (Auto) [place] % (Auto) Eos % (Auto) Baso % (Auto) Neut # (Auto) Sodium Potassium Chloride Carbon Dioxide BUN Creatinine Estimated GFR BUN/Creatinine Ratio Glucose Lactate Calcium Total Bilirubin AST ALT Alkaline Phosphatase Troponin I Total Protein Albumin Globulin Albumin/Globulin Ratio Procalcitonin TSH Free T4 Urine Color Yellow Urine Appearance Clear Urine pH 7.0 Ur Specific [place] 1.015 Urine Protein Negative Urine Glucose (UA) Negative Urine Ketones 1+ H Urine Occult Blood 1+ H Urine Nitrate Negative Urine Bilirubin Negative Urine Urobilinogen 0.2 Ur Leukocyte Esterase Negative Urine RBC 1-5/hpf Urine WBC None seen Urine Bacteria None seen Ur Culture Indicated? Not Reportable Micro UA Comment Not Reportable Assessment & Plan Plan: Assessment/Plan Narrative: 1. Dementia, Alzheimer's type, advanced : Patient was brought to the ED by patient's per recommendation of her primary care physician with request to assist with placement to skilled nurse facility . Patient with longstanding history of dementia without behavioral changes. There was significant cognitive and functional decline in the last 5 years. At this time patient essentially lost ability for independent ambulation and basic activities of daily living though was no falls reported. acknowledged inability to continue caring for his . Social work consult was called to arrange SNF placement and currently pending. 2. Hypothyroidism: Continue chronic replacement with Levoxyl 3. Deconditioning/debility: PT/ OT to evaluate and treat. 4. GI prophylaxis: Heart healthy diet. 5. DVT prophylaxis: Lovenox SC 6. Code status:per discussion with patient's patient was made DNR/ DNI. Time Spent With Patient Time with patient: 25 - 35 minutes
[2018-06-11] MEDS: SODIUM CHLORIDE 0.9% FLUSH 10 ML IV (20:32)
[2018-06-12] VITALS (10 sets, daily range): BP systolic 145–180; BP diastolic 85–101; PULSE 69–98; RESP 16–18; TEMP 36.6–37.1; O2SAT 93–99
[2018-06-12 05:55] LABS: Add Manual Diff / Slide Review NO; Basophils Percent Auto 0.7 % (0-2); Eosinophils Percent Auto 1.9 % (2-4); Hematocrit 37.5 % (36-46); Hemoglobin 12.6 g/dL (12.0-16.0); Lymphocytes Percent Auto 14.6 % (25-40); Mean Corpuscular HGB Conc 33.6 % (30-36); Mean Corpuscular Hemoglobin 29.5 PG (26-34); Mean Corpuscular Volume 87.8 fL (80-100); Neutrophils Absolute Auto 7000 /uL (3000-5900); Neutrophils Percent Auto 73.8 % (50-75); Platelet Count 271 X10^3/uL (150-400); Red Blood Cell Count 4.27 X10^6/uL (4.0-5.2); Red Cell Distribution Width 12.8 % (11.6-14.8); White Blood Cell Count 9.5 X10^3/uL (4.5-11.0)
[2018-06-12 06:00] LABS: BUN Creatinine Ratio 21.7 (6-22); Blood Urea Nitrogen 13 mg/dL (7-17); Calcium 9.3 mg/dL (8.4-10.2); Carbon Dioxide 25 mmol/L (22-32); Chloride 103 mmol/L (98-107); Estimated Glomerular Filt Rate > 60.0 mL/min (>60); Glucose 105 mg/dL (80-110); HEMOLYSIS < 15 (0-50); Magnesium 1.7 mg/dL (1.6-2.3); Potassium 3.7 mmol/L (3.4-5.1); Sodium 139 mmol/L (137-145)
--- NOTE | 2018-06-12 08:03 | PC.NURSE ---
Addendum entered by Catia Michael R.N. 06/12/18 15:56: Spoke to MD in-person re: min PO intake as described below. No new orders at this time. Original Note: Addendum entered by Catia Michael R.N. 06/12/18 15:44: Patient refused lunch despite our best efforts to encourage and assist with meal. Very minimal PO intake today, about 200 ml fluids. Incontinent of urine, so voids unmeasured. Note left for Dr Harrington regarding the same, asked if he thinks patient might need some IV fluids. Melany shift aware to look for orders should he put them in. Original Note: Addendum entered by Catia Michael R.N. 06/12/18 09:44: Discharge disposition: Patient's just arrived and reports he thinks he's found a place for his on [facility]. He's going to go out there today to check it out, but would like to speak to CM before he goes. Will relay this info to Carin. Original Note: Addendum entered by Catia Michael R.N. 06/12/18 09:43: DVT prophylaxis: In prog note from yesterday mentioned that patient was on Lovenox for DVT prophylaxis, but it had not been ordered. This senior technical writer let MD know, see new order. Original Note: Shift summary: Resting quietly in bed with eyes closed. Awakened easily to voice & touch. Pleasantly confused, oriented to self only. Affect is quite flat, one-word answers to questions for the most part. Denies pain and appears comfortable. FLACC score 0. Lungs CTA, SpO2 on RA 97%. HRR. Plan for Q2H reposition and brief changes PRN. PT/OT involved. Case management working together w/ and MD re: discharge disposition and arrangements. Reoriented to call light, light in reach. Bed alarm on.
[2018-06-12] MEDS: SODIUM CHLORIDE 0.9% FLUSH 10 ML IV ×2 (08:49→20:28)
--- NOTE | 2018-06-12 11:09 | CM.DPC ---
DCP: continued: case received, EMR reviewed. Discussed case in morning Interdisc team meeting and then met with pt and her , Jesu. UR RN confirms admission status remains OBS. Jesu reports that he found out yesterday about a small AF: [facility]: Tahmina and Gianluca Jordan [phone] Nurse green building architect: Alcira Johnson: tel: [phone] (no fax) He has good recommendations of this facility from friends and will look at it later today. Jesu says he is very hopeful that all will work out as he has been caring for her for several years now and it will be a difficult transition to have her in a facility for both of them. At least this way I can see her frequently. Spoke with Tahmina and confirmed above. She will need Alcira to ok all before the pt is able to move in. Alcira will review that information faxed to the [facility] ([employer] faxing this now and to include physician, nsg, therapy and CM/dcp notes). Tahmina confirms they are able to care for pt's with Alz dementia and do offer HNW services as part of their care if this is needed in furture. P: Jesu will call and confirm plan after he visits today. Dr. Mosqueda is updated. DC to [facility] when all arrangements are in place.
--- NOTE | 2018-06-12 16:10 | PT.IPTN ---
Physical Therapy Treatment Note M2 PT-IP Current Condition Start: 06/11/18 14:55 Freq: Status: Active Protocol: Document 06/11/18 11:30 RCC (Rec: 06/11/18 15:10 RCC [id number]) Physical Therapy Current Condition Current Condition Evaluation Date 06/11/18 Treatment Diagnosis weakness, impaired mobility Onset Date 06/10/18 Precautions Other Precautions confusion, fall risk, bed/ chair alarm M3 PT-IP Subjective Start: 06/11/18 14:55 Freq: Status: Active Protocol: Document 06/12/18 16:10 MDD (Rec: 06/12/18 16:51 MDD [id number]) Subjective Physical Therapy Visit Type Type Treatment Note Visit Start Time 15:50 Visit Stop Time 16:10 Total Visit Minutes 20 Notes Treatment performed as a co- treatment with OT Number of NATIONAL SERVICE OFFICER Visits 0 Physical Therapy Visit Comments Patient Comments Pt initially refuses OOB activity, but agreeable to try with persuasion. Pt is mostly nonverbal, is able to state yes and no. Therapy Pain Assessment Pain Present Pain Present Denied Pain M4 PT-IP Mobility and Gait Start: 06/11/18 14:55 Freq: Status: Active Protocol: Document 06/11/18 11:30 RCC (Rec: 06/11/18 15:10 RCC [id number]) PT-Bed Mobility Assessment Supine to Sit Supine to Sit Maximum Assistance 1 Person Assistance Head of Bed Elevated Scooting Scooting to Edge of Bed Maximum Assistance PT-Transfer Assessment Sit to and From Stand Sit to and from Stand Maximum Assistance 2 Person Assistance Equipment Transfer Assistive Device Gait Belt Transfers Transfer Destination Chair Transfer Technique Stand Pivot Transfer Ability Level of Assist Maximum Assistance 2 Person Assistance Comments Mobility Comments PT in front of pt with pt's hands on PT's B forearms. Gait Assessment Comments Gait Comments unable to perform PT-Balance Assessment Sitting Balance and Reactions Static Sitting Balance Ability Fair Dynamic Sitting Balance Ability Poor Standing Balance and Reactions Static Standing Balance Ability Poor Dynamic Standing Balance Ability Poor M5 PT-IP Objective Assessments Start: 06/11/18 14:55 Freq: Status: Active Protocol: Document 06/11/18 11:30 RCC (Rec: 06/11/18 15:10 RCC [id number]) Orientation Orientation/Cognition Level of Alertness Confusional State Gross Range of Motion Lower Extremity ROM Impairments limited B knee flexion and extension Strength Lower Extremity Strength Assessment Bilaterally Impaired Hip flexion 2+/5 bilaterally Knee flexion 3+/5 B, extensoin 3/5 on the L and 3+/5 on R Ankle DF 2/5 on the R, 3/5 L Coordination Assessment Gross Coordination Gross Coordination Impaired Muscle Tone Muscle Tone WNL No Comments Muscle Tone Comments heel cord tighness R>L M6 PT-IP Treatment Start: 06/11/18 14:55 Freq: Status: Active Protocol: Document 06/12/18 16:10 MDD (Rec: 06/12/18 16:51 [facility] [id number]) Physical Therapy Treatment Other Treatments Other Treatment Performed Bed mobility max A x2 for supine to sit. Pt sits with R trunk lean, minimal use of R UE. Max A x1 for scooting to EOB. Max A x2 for sit to stand and stand pivot transfer to commode. Pt was able to initiate small steps for transfer with cueing. Max A x2 for stand pivot transfer to recliner. M7 PT-IP Assessment and Plan Start: 06/11/18 14:55 Freq: Status: Active Protocol: Document 06/12/18 16:10 MDD (Rec: 06/12/18 16:51 [facility] [id number]) PT Summary Assessment and Plan Potential Rehabilitation Potential Fair Status of Condition at Evaluation Evolving Summary Impairments ROM Strength Balance Coordination Cognition Bed Mobility Transfers Gait Activity Tolerance Assessment Summary Pt demonstrates slight improvement in functional mobility this day with ability to shuffle her feet when standing with 2 person A. Pt pleasantly confused and fearful of transfers. Goals Bed Mobility Goal Moderate Assistance Transfer Goal Moderate Assistance Gait Goal Moderate Assistance Gait Distance 10 Days to Meet Goals 3 Frequency of Treatment Frequency Of Treatment Once a Day Treatment Plan Physical Therapy Treatment Plan Bed Mobility Training Transfer Training Gait Training Therapeutic Exercise Balance Retraining Discharge Planning Neuromuscular Re-ed Coordination Retraining Other Recommendations and Next Treatment transfers, prog. toward Focus functional gait (recommend 2 assist) Recommendations To Nursing Amount of Assist Needed 2 Person Assist Mechanical Lift Discharge Recommendations PT Discharge Recommendations Home with 24/ Assist SNF Rehab Other Discharge Recommendations longwall foreman care
--- NOTE | 2018-06-12 16:21 | P.PN_ITS ---
Subjective Date Patient Seen: 06/12/18 Time Patient Seen: 11:45 Interval history: This is an 78-year-old female with advanced Alzheimer's dementia presenting with progressive debilitation and failure to thrive, with inability for independent ambulation and activities of daily living. No events since admission, currently remains pleasantly confused and appears to be comfortable, essentially bedridden. Exam Vital Signs (past 8 hours): - 06/12/18 12:21 Temperature 98.8 F Pulse Rate 71 Respiratory Rate 16 Blood Pressure 180/101 H Pulse Oximetry 99 Oxygen Delivery Method Room Air Oxygen Flow Rate 0 Narrative Exam Narrative: Constitutional: Pleasant, chronically confused, resting comfortably. HEENT: Normocephalic, atraumatic Neck: Supple, no lymphadenopathy, no bruits auscultation of the carotid arteries. Resp: Clear to auscultation bilaterally, no rales, crepitations or wheezing detected. Cardiovascular: Regular rate and rhythm with no murmurs rubs or gallops. GI: Nontender to palpation throughout all quadrants. Nondistended. : No CVA tenderness to percussion bilaterally. No suprapubic tenderness or palpable masses. MSK: No visible deformities, strength and tone within normal limits. Skin: Normal color with no visible lesions. Neuro: Patient appears to be grossly neurologically intact Objective Imaging CT scan - head: Radiologist's impression: CT scan - head: Radiologist's impression: FINDINGS: Image quality: Excellent. CSF spaces: Basal cisterns are patent. No extra-axial fluid collections. The ventricles are symmetric in size and shape. Brain: No intracranial bleeds or masses. There is cerebral volume loss for age , with resultant ventricular and sulcal prominence. There are periventricular and deep white matter chronic small vessel ischemic changes. There is intracranial internal carotid artery atherosclerosis. Skull and face: Calvarium and visualized facial bones appear intact, without suspicious lesions. Sinuses: Visualized sinuses and mastoids are clear. IMPRESSION: No acute intracranial abnormality. Dictated by: Pro Palencia M.D. on 06/10/2018 at 16:21 Labs Result Diagrams: 06/12/18 05:10 06/12/18 05:10 Labs: Laboratory Results - last 24 hr 06/12/18 06/12/18 05:10 05:10 WBC 9.5 RBC 4.27 Hgb 12.6 Hct 37.5 MCV 87.8 MCH 29.5 MCHC 33.6 RDW 12.8 Plt Count 271 Neut % (Auto) 73.8 Lymph % (Auto) 14.6 L [place] % (Auto) 9.0 Eos % (Auto) 1.9 L Baso % (Auto) 0.7 Neut # (Auto) 7000 H Sodium 139 Potassium 3.7 Chloride 103 Carbon Dioxide 25 BUN 13 Creatinine 0.60 Estimated GFR > 60.0 BUN/Creatinine Ratio 21.7 Glucose 105 Calcium 9.3 Magnesium 1.7 Assessment & Plan Plan: Assessment/Plan Narrative: 1. Dementia, Alzheimer's type, advanced : Patient was brought to the ED by patient's per recommendation of her primary care physician with request to assist with placement to skilled nurse facility . Patient with longstanding history of dementia without behavioral changes. There was significant cognitive and functional decline in the last 5 years. At this time patient essentially lost ability for independent ambulation and basic activities of daily living though was no falls reported. acknowledged inability to continue caring for his . Social work consult was called to arrange SNF or [facility] placement . 2. Hypothyroidism: Continue chronic replacement with Levoxyl 3. Deconditioning/debility: PT/ OT to evaluate and treat.REmain essentially bedridden. 4. Code status:per discussion with patient's patient was made DNR/ DNI. Time Spent With Patient Time with patient: 25 - 35 minutes
--- NOTE | 2018-06-12 16:28 | OT.IP.TRT ---
Occupational Therapy Treatment Note M2 OT-IP Current Condition Start: 06/11/18 13:22 Freq: Status: Active Protocol: Document 06/11/18 13:22 PJM (Rec: 06/11/18 13:47 PJM [id number]) Occupational Therapy Current Condition Current Condition Evaluation Date 06/11/18 Treatment Diagnosis decreased functional cognition , self care, mobility due to dementia Diagnosis Onset Date 06/10/18 Post Operative Precautions Other Precautions confusion, fall risk, bed/ chair alarm M3 OT- IP Subjective and Pain Start: 06/11/18 13:22 Freq: Status: Active Protocol: Document 06/11/18 13:22 PJM (Rec: 06/11/18 13:47 PJM [id number]) OT- Subjective Occupational Therapy Visit Type Type Initial Evaluation Visit Start Time 10:45 Visit Stop Time 11:30 Total Visit Minutes 45 Notes here to provide information re: pt's prior level of function. Occupational Therapy Visit Comments Patient Comments pt does not initiate conversation Patient/Caregiver Goals none verbalized this session due to confusion OT Pain Assessment Pain When Pain Assessed After Treatment Pain Present Pain Present Denied Pain M4 OT- IP ADL's Start: 06/11/18 13:22 Freq: Status: Active Protocol: Document 06/12/18 16:16 CCC (Rec: 06/12/18 16:28 CCC [id number]) OT ADL-Grooming General Evaluation Grooming Ability Maximum Assistance Comments OT Grooming Comments Pt needing hand over hand assist with wash cloth to wash her hands. OT ADL-Dressing General Eval Lower Body Dressing Ability Total Assistance Areas Needing Assistance Underpants/Brief Socks Comments OT Dressing Comments Total assist for brief and socks. OT ADL-Toileting General Evaluation Toileting Ability Total Assistance Areas Needing Assistance Manage Clothing Perform Perineal Hygiene Comments OT Toileting Comments PT and OT to help pt stand and then to transfer from bed to BSC and BSC to recliner. M5 OT- IP IADL's Start: 06/11/18 13:22 Freq: Status: Active Protocol: Document 06/11/18 13:22 PJM (Rec: 06/11/18 13:47 PJM [id number]) OT-Instrumental Activities of Daily Living Deficits IADL Deficits Identified Deficits Home Safety Awareness Awareness of Need for Assistance at Home Decreased Awareness Ability to Problem Solve Emergency Unable to Problem Solve Situations Medication Management Medication Management Caregiver Administers Money Management Money Management Caregiver Provides Assistance Meal Preparation Meal Preparation Caregiver Provides Assist Supervisor Boarding Supervisor Boarding Caregiver Provides Assist Driving Driving Comments pt no longer drives M6 OT- IP Functional Cognition Start: 06/11/18 13:22 Freq: Status: Active Protocol: Document 06/12/18 16:16 [facility] (Rec: 06/12/18 16:28 [facility] [id number]) Cognitive Factors Limiting Selfcare Function Cognitive Ability Level of Alertness Alert Patient Orientation Name Attention Span Ability Unable to Focus Unable to Sustain Attention Ability to Follow Commands Able to Follow One Step Commands with Increased Time Able to Follow One Step Commands with Repetition Cognitive Comments Cognitive Assessment Comments Pt still a bit groggy from waking up. M7 OT- IP Mobility and Balance Start: 06/11/18 13:22 Freq: Status: Active Protocol: Document 06/12/18 16:16 [facility] (Rec: 06/12/18 16:28 [facility] [id number]) OT- Bed Mobility Assessment Rolling Type of Rolling Roll to Left Level of Assistance Maximum Assistance 2 Person Assistance Supine to Sit Supine to Sit Assist Maximum Assistance 2 Person Assistance Head of Bed Elevated OT-Transfer Assessment Sit to and From Stand Sit to and from Stand Maximum Assistance 2 Person Assistance Transfers Transfer Ability Moderate Assistance Maximum Assistance 2 Person Assistance Technique Transfer Destination Bedside Commode Chair Transfer Technique Stand Step Pivot Devices Transfer Assistive Devices Gait Belt Comments Mobility Comments Pt very fearful and slow to move and needing physical guidance, weight shifting so able to take a few steps and turn to BSC and then recliner. OT- Balance Assessment Sitting Balance and Reactions Static Sitting Balance Ability Fair Dynamic Sitting Balance Ability Poor Standing Balance and Reactions Static Standing Balance Ability Poor Dynamic Standing Balance Ability Poor M8 OT- IP Objective Assessments Start: 06/11/18 13:22 Freq: Status: Active Protocol: Document 06/11/18 13:22 PJM (Rec: 06/11/18 13:47 PJM [id number]) OT Gross Range of Motion Upper Extremity Range of Motion Assessment Right Impaired ROM Impairments Pt has RUE lag compared to L during BUE AROM. Per , pt had R wrist fx's in 2011 and 2012. OT Strength Upper Extremity Strength Assessment Right Impaired Shoulder RUE: 3+/5 LUE: 4-/5 Elbow RUE: 3+/5 LUE: 4-/5 Hand RUE: 4-/5 LUE: 4/5 Hand Grocery Cashier Strength Hand Dominance Right Comments Strength Comments RUE slightly weaker than LUE throughout OT- Coordination Assessment Comments Coordination Comments B hand coordination impaired by confusion and decreased moot planning OT-Muscle Tone Assessment Muscle Tone WNL Yes OT Sensation Assessment Comments Summary Comments Pt appears to detect light touch in BUE; difficult to formally assess due to confusion Edema Edema Absent Edema Comments in BUE's M9 OT- IP Assessment and Plan Start: 06/11/18 13:22 Freq: Status: Active Protocol: Document 06/12/18 16:16 [facility] (Rec: 06/12/18 16:28 [facility] [id number]) OT Summary Assessment and Plan Potential Rehabilitation Potential Fair Analytic Complexity at Evaluation Low Summary Progress Towards Goals Slow Progress due to Medical Issues Slow Progress due to Activity Tolerance Slow Progress due to Cognition Assessment Summary Pt continues to need extensive assist x2 for all ADl and mobility need and family looking into Adult family Home versus home with paid caregivers. Pt's family refusing skilled rehab and therefore would benefit from home health when medically stable. Goals Days to Meet Goals 5 Frequency of Treatment Frequency Of Treatment Once a Day Treatment Plan OT Treatment Plan ADL Training Functional Mobility Patient/Family Education Discharge Planning Discharge Recommendations OT Discharge Recommendations Home with / Assist Home Health Other Discharge Recommendations vs Adult Family home Home Equipment Needs bedside commode, shower seat with back, hand held shower hose
--- NOTE | 2018-06-12 16:39 | OT.IP.TRT ---
Occupational Therapy Treatment Note M2 OT-IP Current Condition Start: 06/11/18 13:22 Freq: Status: Active Protocol: Document 06/11/18 13:22 PJM (Rec: 06/11/18 13:47 PJM [id number]) Occupational Therapy Current Condition Current Condition Evaluation Date 06/11/18 Treatment Diagnosis decreased functional cognition , self care, mobility due to dementia Diagnosis Onset Date 06/10/18 Post Operative Precautions Other Precautions confusion, fall risk, bed/ chair alarm M3 OT- IP Subjective and Pain Start: 06/11/18 13:22 Freq: Status: Active Protocol: Document 06/11/18 13:22 PJM (Rec: 06/11/18 13:47 PJM [id number]) OT- Subjective Occupational Therapy Visit Type Type Initial Evaluation Visit Start Time 10:45 Visit Stop Time 11:30 Total Visit Minutes 45 Notes here to provide information re: pt's prior level of function. Occupational Therapy Visit Comments Patient Comments pt does not initiate conversation Patient/Caregiver Goals none verbalized this session due to confusion OT Pain Assessment Pain When Pain Assessed After Treatment Pain Present Pain Present Denied Pain M4 OT- IP ADL's Start: 06/11/18 13:22 Freq: Status: Active Protocol: Document 06/12/18 16:16 CCC (Rec: 06/12/18 16:28 CCC [id number]) OT ADL-Grooming General Evaluation Grooming Ability Maximum Assistance Comments OT Grooming Comments Pt needing hand over hand assist with wash cloth to wash her hands. OT ADL-Dressing General Eval Lower Body Dressing Ability Total Assistance Areas Needing Assistance Underpants/Brief Socks Comments OT Dressing Comments Total assist for brief and socks. OT ADL-Toileting General Evaluation Toileting Ability Total Assistance Areas Needing Assistance Manage Clothing Perform Perineal Hygiene Comments OT Toileting Comments PT and OT to help pt stand and then to transfer from bed to BSC and BSC to recliner. M5 OT- IP IADL's Start: 06/11/18 13:22 Freq: Status: Active Protocol: Document 06/11/18 13:22 PJM (Rec: 06/11/18 13:47 PJM [id number]) OT-Instrumental Activities of Daily Living Deficits IADL Deficits Identified Deficits Home Safety Awareness Awareness of Need for Assistance at Home Decreased Awareness Ability to Problem Solve Emergency Unable to Problem Solve Situations Medication Management Medication Management Caregiver Administers Money Management Money Management Caregiver Provides Assistance Meal Preparation Meal Preparation Caregiver Provides Assist Application Security Specialist Application Security Specialist Caregiver Provides Assist Driving Driving Comments pt no longer drives M6 OT- IP Functional Cognition Start: 06/11/18 13:22 Freq: Status: Active Protocol: Document 06/12/18 16:16 [facility] (Rec: 06/12/18 16:28 [facility] [id number]) Cognitive Factors Limiting Selfcare Function Cognitive Ability Level of Alertness Alert Patient Orientation Name Attention Span Ability Unable to Focus Unable to Sustain Attention Ability to Follow Commands Able to Follow One Step Commands with Increased Time Able to Follow One Step Commands with Repetition Cognitive Comments Cognitive Assessment Comments Pt still a bit groogy from waking up. M7 OT- IP Mobility and Balance Start: 06/11/18 13:22 Freq: Status: Active Protocol: Document 06/12/18 16:16 [facility] (Rec: 06/12/18 16:28 [facility] [id number]) OT- Bed Mobility Assessment Rolling Type of Rolling Roll to Left Level of Assistance Maximum Assistance 2 Person Assistance Supine to Sit Supine to Sit Assist Maximum Assistance 2 Person Assistance Head of Bed Elevated OT-Transfer Assessment Sit to and From Stand Sit to and from Stand Maximum Assistance 2 Person Assistance Transfers Transfer Ability Moderate Assistance Maximum Assistance 2 Person Assistance Technique Transfer Destination Bedside Commode Chair Transfer Technique Stand Step Pivot Devices Transfer Assistive Devices Gait Belt Comments Mobility Comments Pt very fearful and slow to move and needing physical guidance, weight shifting so able to take a few steps and turn to BSC and then recliner. OT- Balance Assessment Sitting Balance and Reactions Static Sitting Balance Ability Fair Dynamic Sitting Balance Ability Poor Standing Balance and Reactions Static Standing Balance Ability Poor Dynamic Standing Balance Ability Poor M8 OT- IP Objective Assessments Start: 06/11/18 13:22 Freq: Status: Active Protocol: Document 06/11/18 13:22 PJM (Rec: 06/11/18 13:47 PJM [id number]) OT Gross Range of Motion Upper Extremity Range of Motion Assessment Right Impaired ROM Impairments Pt has RUE lag compared to L during BUE AROM. Per , pt had R wrist fx's in 2011 and 2012. OT Strength Upper Extremity Strength Assessment Right Impaired Shoulder RUE: 3+/5 LUE: 4-/5 Elbow RUE: 3+/5 LUE: 4-/5 Hand RUE: 4-/5 LUE: 4/5 Hand Power Switchboard Operator Strength Hand Dominance Right Comments Strength Comments RUE slightly weaker than LUE throughout OT- Coordination Assessment Comments Coordination Comments B hand coordination impaired by confusion and decreased moot planning OT-Muscle Tone Assessment Muscle Tone WNL Yes OT Sensation Assessment Comments Summary Comments Pt appears to detect light touch in BUE; difficult to formally assess due to confusion Edema Edema Absent Edema Comments in BUE's M9 OT- IP Assessment and Plan Start: 06/11/18 13:22 Freq: Status: Active Protocol: Document 06/12/18 16:16 [facility] (Rec: 06/12/18 16:28 [facility] [id number]) OT Summary Assessment and Plan Potential Rehabilitation Potential Fair Analytic Complexity at Evaluation Low Summary Progress Towards Goals Slow Progress due to Medical Issues Slow Progress due to Activity Tolerance Slow Progress due to Cognition Assessment Summary Pt continues to need extensive assist x2 for all ADl and mobility need and family looking into Adult family Home versus home with paid caregivers. Pt's family refusing skilled rehab and therefore would benefit from home health when medically stable. Goals Days to Meet Goals 5 Frequency of Treatment Frequency Of Treatment Once a Day Treatment Plan OT Treatment Plan ADL Training Functional Mobility Patient/Family Education Discharge Planning Discharge Recommendations OT Discharge Recommendations [facility] Care versus Other Discharge Recommendations Adult Family Home versus home with paid caregivers Home Equipment Needs bedside commode, shower seat with back, hand held shower hose
--- NOTE | 2018-06-12 17:40 | PC.NURSE ---
Addendum entered by Katlin Rogers R.N. 06/12/18 21:17: Pt assisted back to bed. Relatively uneventful evening. HL LAC intact/patent. Denies any discomfort. Call light w/in reach, bed alarm on for pt safety. Continue w/plan of care. Original Note: Pt sitting in chair, 2 person assist. Denies discomfort. Pt presents slightly confused, however reorients quickly. HL ANGELINA intact/patent. Call light w/in reach. chair alarm on for pt safety.
[2018-06-12] MEDS: ENOXAPARIN 30 MG/0.3 ML SYRINGE SUBCUT (20:10)
[2018-06-13 00:54] VITALS: BP 164/92; PULSE 88; RESP 15; TEMP 36.8; O2SAT 95
[2018-06-13 04:44] VITALS: BP 190/99; PULSE 100; RESP 18; TEMP 36.7; O2SAT 95
[2018-06-13 08:51] VITALS: BP 153/85; PULSE 95; RESP 16; TEMP 36.7; O2SAT 96
[2018-06-13] MEDS: SODIUM CHLORIDE 0.9% FLUSH 10 ML IV (09:27)
--- NOTE | 2018-06-13 10:17 | PC.NURSE ---
Shift summary: Dozing off and on. Awakens easily to voice/touch, quite lethargic today. Oriented to self only. Calm, pleasant and cooperative. PUBLIC HEALTH NURSE's (2 of them) were able to transfer patient to chair for breakfast. PT was just here to try and work with patient and she was so weak she was barely able to stand (w/2 person max assist and gait belt). Denies any complaints other than feeling tired. Lungs CTA, HRR. SpO2 on RA 96%. Reoriented to call light and encouraged to make needs known. Chair alarm on, room door open for close observation.
--- NOTE | 2018-06-13 11:04 | PT.IPTN ---
Physical Therapy Treatment Note M2 PT-IP Current Condition Start: 06/11/18 14:55 Freq: Status: Active Protocol: Document 06/11/18 11:30 RCC (Rec: 06/11/18 15:10 RCC [id number]) Physical Therapy Current Condition Current Condition Evaluation Date 06/11/18 Treatment Diagnosis weakness, impaired mobility Onset Date 06/10/18 Precautions Other Precautions confusion, fall risk, bed/ chair alarm M3 PT-IP Subjective Start: 06/11/18 14:55 Freq: Status: Active Protocol: Document 06/13/18 10:00 LRN (Rec: 06/13/18 10:57 LRN [id number]) Subjective Physical Therapy Visit Type Type Treatment Note Visit Start Time 10:00 Visit Stop Time 10:20 Total Visit Minutes 20 Notes Partial treatment performed with RN. Number of [employer]PER[employer]OR [employer] Visits 0 Physical Therapy Visit Comments Patient Comments Pt sitting in chair, nods head to okay therapy. Pt nonverbal and lethargic. M4 PT-IP Mobility and Gait Start: 06/11/18 14:55 Freq: Status: Active Protocol: Document 06/13/18 10:00 LRN (Rec: 06/13/18 10:57 LRN [id number]) PT-Transfer Assessment Sit to and From Stand Sit to and from Stand Maximum Assistance 2 Person Assistance Equipment Transfer Assistive Device Gait Belt Transfer Ability Level of Assist Maximum Assistance 2 Person Assistance Comments Mobility Comments Attempted to stand patient. Pt did not reach full stance. With MaxA stance she was in partial sit and not full weightbearing through LE's. Gait Assessment Comments Gait Comments Pt not safe for prolonged standing or gait. She was not following short commands. M5 PT-IP Objective Assessments Start: 06/11/18 14:55 Freq: Status: Active Protocol: Document 06/13/18 10:00 LRN (Rec: 06/13/18 10:57 LRN [id number]) Orientation Orientation/Cognition Level of Alertness Lethargic Comments Pt lethargic during ROM ex's. She did not try to participate in therapy and did not follow short verbal commands. M6 PT-IP Treatment Start: 06/11/18 14:55 Freq: Status: Active Protocol: Document 06/13/18 10:00 LRN (Rec: 06/13/18 10:57 LRN [id number]) Physical Therapy Treatment Exercises Exercises Seated Knee Flexion/Extension Shoulder Flexion Elbow Flexion/Extension Other Treatments Other Treatment Performed Sitting unsupported. Trunk assisted rotation. Cervical assisted rotation. All UE and LE ex was AAROM> PROM M7 PT-IP Assessment and Plan Start: 06/11/18 14:55 Freq: Status: Active Protocol: Document 06/13/18 10:00 LRN (Rec: 06/13/18 10:57 LRN [id number]) PT Summary Assessment and Plan Potential Rehabilitation Potential Poor Status of Condition at Evaluation Evolving Summary Impairments ROM Strength Balance Coordination Cognition Bed Mobility Transfers Gait Activity Tolerance Assessment Summary Pt shows poor rehab potential this AM due to lethargy and inability to follow directions and participate in therapy. She was not able to stand due to lethargy and was Max A. Vitals were HR 95, BP 154/98, SpO2 96%. Pt should be monitored for appropriateness for PT. Goals Bed Mobility Goal Moderate Assistance Transfer Goal Moderate Assistance Gait Goal Moderate Assistance Gait Distance 10 Days to Meet Goals 3 Frequency of Treatment Frequency Of Treatment Once a Day Treatment Plan Physical Therapy Treatment Plan Bed Mobility Training Transfer Training Gait Training Therapeutic Exercise Balance Retraining Discharge Planning Neuromuscular Re-ed Coordination Retraining Other Recommendations and Next Treatment Monitor if pt appropriate for Focus PT. If pt awareness improves, progress transfers, and functional gait (recommend 2 assist). Recommendations To Nursing Amount of Assist Needed 2 Person Assist Mechanical Lift Discharge Recommendations PT Discharge Recommendations SNF Rehab Other Discharge Recommendations apprenticeship training representative care
--- NOTE | 2018-06-13 12:39 | P.DS_ITS ---
History of Present Illness Date Patient Seen: 06/13/18 Time Patient Seen: 08:00 Chief complaint: Weakness Narrative: This is an 78-year-old female with advanced Alzheimer's dementia presenting with progressive debilitation and failure to thrive, with lost ability for independent ambulation and activities of daily living. Patient with significant cognitive decline in the last 5 years accompanied by decreased mobility, energy, confusion and weakness . She was brought to ED by patient's for inability to continue ongoing cares she required requesting assistance with placement to [facility] facility. Initial exam and testing in ED was significant for elderly female who was pleasantly confused. Her vital signs were stable, clinical exam was unremarkable. Otherwise no abnormal findings were found on clinical labs and initial imaging studies conducted. Discharge Providers Date of admission: 06/10/18 18:15 Primary care physician: Dao Tse MD Consults: 06/10/18 19:03 Consult to Discharge Planning Routine Comment: Consult to Occupational Therapy Evaluate & Treat Comment: Physician Instructions: Evaluate and treat Consult to Physical Therapy Evaluate & Treat Comment: Physician Instructions: Evaluate and Treat 06/10/18 19:25 Consult to Scoring Machine Operator Routine Comment: Discharge provider: Herb Mosqueda MD Summary Discharge Diagnosis: 1. Dementia, Alzheimer's type, advanced : Patient was brought to the ED by patient's per recommendation of her primary care physician with request to assist with placement to skilled nurse facility . Patient with longstanding history of dementia without behavioral changes. There was significant cognitive and functional decline in the last 5 years. At this time patient essentially lost ability for independent ambulation and basic activities of daily living though was no falls reported. acknowledged inability to continue caring for his . Social work consult was called to arrange SNF or [facility] placement . 2. Hypothyroidism: Continue chronic replacement with Levoxyl 3. Deconditioning/debility: PT/ OT to evaluate and treat.REmain essentially bedridden. 4. Code status:per discussion with patient's patient was made DNR/ DNI. Hospital Course: This is an 78 year old female with advanced Alzheimer's dementia showing signs of progressive functional decline and failure to thrive. Per patient's account with essentially complete loss of ability to ambulate in the last 10 days. No abnormalities on clinical exam, clinical labs or imaging studies were found to admission. Arrangements were made , as requested by patient's ,for patient's placement to adult family home. She was discharged from hospital in stable condition. Patient might benefit from eventual transitioning to palliative/hospice care. Status at Discharge Cognitive/behavioral status at discharge: Advanced dementia with progressive debilitation and failure to thrive, essentially bedridden status with loss of ability to ambulate independently Functional status at discharge: wheelchair bound Overall status at discharge: patient is not back to baseline Time Spent with Patient Less than 30 minutes Exam Vital Signs (past 8 hours): - 06/13/18 04:44 06/13/18 08:51 Temperature 98.0 F 98.0 F Pulse Rate 100 H 95 H Respiratory Rate 18 16 Blood Pressure 190/99 H 153/85 H Pulse Oximetry 95 96 Oxygen Delivery Method Room Air Oxygen Flow Rate 0 Narrative Exam Narrative: Constitutional: Pleasant, chronically confused, resting comfortably. HEENT: Normocephalic, atraumatic Neck: Supple, no lymphadenopathy, no bruits auscultation of the carotid arteries. Resp: Clear to auscultation bilaterally, no rales, crepitations or wheezing detected. Cardiovascular: Regular rate and rhythm with no murmurs rubs or gallops. GI: Nontender to palpation throughout all quadrants. Nondistended. : No CVA tenderness to percussion bilaterally. No suprapubic tenderness or palpable masses. MSK: No visible deformities, strength and tone within normal limits. Skin: Normal color with no visible lesions. Neuro: Patient appears to be grossly neurologically intact Objective Imaging CT scan - head: Radiologist's impression: CT scan - head: Radiologist's impression: CT scan - head: Radiologist's impression: FINDINGS: Image quality: Excellent. CSF spaces: Basal cisterns are patent. No extra-axial fluid collections. The ventricles are symmetric in size and shape. Brain: No intracranial bleeds or masses. There is cerebral volume loss for age , with resultant ventricular and sulcal prominence. There are periventricular and deep white matter chronic small vessel ischemic changes. There is intracranial internal carotid artery atherosclerosis. Skull and face: Calvarium and visualized facial bones appear intact, without suspicious lesions. Sinuses: Visualized sinuses and mastoids are clear. IMPRESSION: No acute intracranial abnormality. Dictated by: Pro Palencia M.D. on 06/10/2018 at 16:21 Labs Result Diagrams: 06/12/18 05:10 06/12/18 05:10 Discharge Plan Discharge Plan Patient Disposition: Home Discharge comment: Getting discharged to [facility]. Eventually, might benefit from transitioning to palliative/ hospice care. Provider Discharge Instructions Diet: Diet as Tolerated Discharge Data Primary Care Provider: Dao Tse Attending Provider: Herb Mosqueda Admit Date/Time: 06/10/18 18:15
--- NOTE | 2018-06-13 12:47 | OT.IP.TRT ---
Occupational Therapy Treatment Note M2 OT-IP Current Condition Start: 06/11/18 13:22 Freq: Status: Active Protocol: Document 06/11/18 13:22 PJM (Rec: 06/11/18 13:47 PJM [id number]) Occupational Therapy Current Condition Current Condition Evaluation Date 06/11/18 Treatment Diagnosis decreased functional cognition , self care, mobility due to dementia Diagnosis Onset Date 06/10/18 Post Operative Precautions Other Precautions confusion, fall risk, bed/ chair alarm M3 OT- IP Subjective and Pain Start: 06/11/18 13:22 Freq: Status: Active Protocol: Document 06/13/18 12:47 PJM (Rec: 06/13/18 15:48 PJM [id number]) OT- Subjective Occupational Therapy Visit Type Type Treatment Note Visit Start Time 12:01 Visit Stop Time 12:47 Total Visit Minutes 46 Occupational Therapy Visit Comments Patient Comments minimal verbalizations, tends to gesture rather than answer verbally Patient/Caregiver Goals unable to verbalize goal due to confusion OT Pain Assessment Pain When Pain Assessed After Treatment Pain Present Pain Present Denied Pain M4 OT- IP ADL's Start: 06/11/18 13:22 Freq: Status: Active Protocol: Document 06/13/18 12:47 PJM (Rec: 06/13/18 15:48 PJM [id number]) OT [id number] General Evaluation Diet Level for Self-Feeding general but does better with softer foods Self-Feeding Ability Maximum Assistance Areas Needing Assistance Bringing Utensil to Mouth Drinking From Cup/Glass Loading Utensil Comments OT Self-Feeding Comments Pt needs total assist to load utensil and max hand over hand guiding to initiate and bring utensil to mouth. Pt will initiate and complete drink from cup without cues but performs very slowly. Pt occasionally holds food or liquids in mouth and needs verbal cues to swallow. Performs very slowly. OT ADL-Grooming General Evaluation Grooming Ability Maximum Assistance Areas Needing Assistance Face Washing Comments OT Grooming Comments Pt needs hand over hand assist to wash face after meal; appears tactile defensive around mouth when washcloth touches it. OT ADL-Oral Care General Eval Oral Care Ability Total Assistance Comments Oral Care Comments Pt needs oral care after meals to ensure no pocketing of food. M6 OT- IP Functional Cognition Start: 06/11/18 13:22 Freq: Status: Active Protocol: Document 06/13/18 12:47 PJM (Rec: 06/13/18 15:48 PJM [id number]) Cognitive Factors Limiting Selfcare Function Cognitive Ability Level of Alertness Drowsy Attention Span Ability Unable to Sustain Attention Ability to Follow Commands Able to Follow One Step Commands with Increased Time Memory Description Immediate Impaired Short Term Impaired Problem Solving Ability Unable to Identify Errors Executive Function Ability Unable to Filter Distractions Cognitive Comments Cognitive Assessment Comments Pt has very slow speed of processing, but able to make simple choices re: food preferences. OT- Vision and Hearing OT- Hearing Assessment OT- Hearing Assessment WFL M9 OT- IP Assessment and Plan Start: 06/11/18 13:22 Freq: Status: Active Protocol: Document 06/13/18 12:47 PJM (Rec: 06/13/18 15:48 PJM [id number]) OT Summary Assessment and Plan Summary Progress Towards Goals Slow Progress due to Cognition Assessment Summary Pt needs max assist with self feeding and may need to be fed to ensure adequate oral intake. Pt more drowsy today but interested in food items and able to indicate basic choices re: food preferences. 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 Very slow speed of processing noted but pt does follow one step commands. Goals Self-Feeding Goal Moderate Assistance Grooming Goal Moderate Assistance Dressing Goal Moderate Assistance Bathing Goal Moderate Assistance Toilet Transfer Goal Moderate Assistance Bedside Commode OT-Other Goals Bathing goal is for seated upper body sponge bath. Days to Meet Goals 7 Frequency of Treatment Frequency Of Treatment Once a Day Treatment Plan OT Treatment Plan ADL Training Functional Mobility Patient/Family Education Discharge Planning Discharge Recommendations Other Discharge Recommendations Per case management director, pt to d/c to adult family home today where they have experience with dementia care. Home Equipment Needs bedside commode, shower seat with back, hand held shower hose
--- NOTE | 2018-06-13 14:00 | CM.DPNOTE ---
Addendum entered by Carin Telles LPN 12/17/18 16:22: Confirmation is not receivedL printout shows E 3: No answer. As this is a Tuesday will keep all info and try again when this DCPlanner returns on 12/20 (Tuesday). If still a problem will call the Liaison number listed on the request form. Original Note: Addendum entered by Carin Telles LPN 12/17/18 16:16: Received a request from [employer] with request for clarification of information on the PCS. Run # [id number]. This is now filled out and 8 pages including the pt's face sheet for this d/c on 06/13/18 plus DCP note for that day, and PT note is faxed back to them now: . Am awaiting fax confirmation receipt and then will have all scanned into the pt's EMR. Original Note: DCP: continued: pt deemed stable for the d/c to the [facility] when all in place. Coordinated the acceptance to the facility with nurse/Alcira, the [facility] family and pt's spouse Jose. All is now in place with [facility] picking pt [place] [address] to [facility]. Jose is aware that there is a chance the ambulance may not be covered by Medicare. He wishes to proceed anyway, noting that this is the only safe way she can transport. Jose expresses great thankfulness for his 's care. Will follow prn until pt leaves. [facility] has faxed priority board for [facility] pt[facility].
== END 2018-06-13 15:15 | disposition home or self-care (01) ==
LOC: ED 13:37 → AC 18:17
PROVIDERS: Admitting Provider Hospitalist; Emergency Provider Emergency Medicine; PCP Family Medicine; Visit Provider Hospitalist
DX: R62.7 Adult failure to thrive (principal); R53.1 Weakness; E03.9 Hypothyroidism, unspecified; G30.9 Alzheimer's disease, unspecified; F02.80 Dementia in other diseases classified elsewhere, unspecified severity, without behavioral disturbance, psychotic disturbance, mood disturbance, and anxiety; R53.81 Other malaise
CPT/HCPCS: 36415; 70450; 71045; 80048; 80053; 81001; 83605; 83735; 84145; 84439; 84443; 84484; 85025; 87040; 93005; 93010; 93041; 96361; 96374; 97110; 97162; 97165; 97530; 97535; 99285; G0378; J1650